=== PATIENT | male | born 1940 | race Caucasian/White ===

== ENCOUNTER 2017-03-19 21:56 | Emergency (ER) | payer OTHER, BC ==
[~2017-03-19 21:56] MED LIST: ALDACTONE25 MG PO; AMLODIPINE BES2.5 MG PO; ASPIRIN ADULT L81 M1 PO; ATORVASTATIN CA40 MG PO; CARVEDILOL25 MG PO; DICYCLOMINE HCL20 MG PO; OMEPRAZOLE40 MG PO
--- NOTE | 2017-03-19 22:25 | ED CLINICAL REPORT ---
Clinical Report - Physicians/Mid Levels [facility] [address] [place] [address] 03/19/2017 21:58 Patient: ABA MOSQUEDA Time Seen: 22:18. Arrived- By private vehicle. Historian- patient. HISTORY OF PRESENT ILLNESS Chief Complaint: DENTAL PAIN. This started yesterday and is still present. Pain described as moderate. The patient has had toothache and jaw pain. (Has irrigated w/ WaterPik-made more painful, swished w/ saltwater, and started amox-took 2 capsules (has bottle of 100 caps of 500mg from [place])). Similar symptoms previously: Recent medical care: The patient was seen recently by a health care provider. ( saw dentist about 6mo ago for same area-advised to have routine f/u for "pus pockets" in gum). REVIEW OF SYSTEMS No fever, joint pain or enlarged lymph nodes. PAST HISTORY See nurses notes. No history of hypertension or diabetes mellitus. Surgeries: Appendectomy. Cholecystectomy. Splenectomy. Medications: Hypertension medications (unknown). Betalol . MetFORMIN HCl Oral. SOCIAL HISTORY Never smoker. Occasional alcohol use. No drug use. ADDITIONAL NOTES The nursing notes have been reviewed. PHYSICAL EXAM Vital Signs: 03/19/2017 22:03 BP: 179/94. HR: 82. RR: 16. O2 saturation: 99%. Temp: 98.9 F. Pain level now: 8/10. Have been reviewed and appear to be correct. Appearance: Alert. No acute distress. Head: Normal external inspection. Eyes: Pupils equal, round and reactive to light. Conjunctivae and eyelids normal. ENT: Moderate dental tenderness of a single tooth with gingival tenderness and swelling (upper right teeth). Ears normal. Nose normal. Pharynx normal. Lips normal. Uvula midline. No muffled or hoarse voice, drooling or trismus. The mucous membranes are not dry. Neck: Trachea midline. No adenopathy. No meningeal signs. CVS: Normal heart rate and rhythm. Respiratory: No respiratory distress. Skin: Normal skin color. No rash. Normal skin turgor. Neuro: Oriented X 3. PROGRESS AND PROCEDURES Course of Care: No cellulitis-but abx certainly warranted given hx splenectomy. Pt has no HUNTER report. Small amt pain rx reasonable. Use ibuprofen first, then T3. Recheck BP w/ PCP. Patient is stable. Patient counseled in person regarding the patient's condition and need for follow-up. Disposition: Discharged. Condition: stable. CLINICAL IMPRESSION Periapical dental abscess. No sinus tract or Hermilo's angina. Elevated blood pressure w/o dx of HTN. INSTRUCTIONS Drink plenty of fluids. Follow a soft diet. (Take your amoxicillin 500mg 3 times a day for a 10 day course See the dentist as soon as possible-let them know you are on antibiotics when you call. Please recheck your BP w/ Dr Molina). Warnings: Further evaluation is necessary. GENERAL WARNINGS: Return or contact your physician immediately if your condition worsens or changes unexpectedly, if not improving as expected, or if other problems arise. Prescription Medications: Tylenol with Codeine Tylenol #3 (30 mg / 300 mg) : take 1-2 tablets orally every 6 hours as needed for pain. Dispense ten (10). No refill. Ibuprofen 800 mg tablets: take 1 tablet orally every 8 hours as needed for pain. Dispense thirty (30). One refill. Follow-up: Follow up with a specialist your dentist even if well. Call for the next available appointment. Understanding of the discharge instructions verbalized by patient. Follow-up with: Cirilo Molina MD, [facility], , [facility], [address] [facility] [address] [place] [address] Follow up even if well. Call for an appointment. Reason for referral: f/u elev BP. (Electronically signed by Rosalva Arce A.R.N.P. 03/19/2017 22:34)
--- NOTE | 2017-03-19 22:25 | ED CLINICAL REPORT ---
Clinical Report - Physicians/Mid Levels [facility] [address] [place] [address] 03/19/2017 21:58 Patient: ABA MOSQUEDA Time Seen: 22:18. Arrived- By private vehicle. Historian- patient. HISTORY OF PRESENT ILLNESS Chief Complaint: DENTAL PAIN. This started yesterday and is still present. Pain described as moderate. The patient has had toothache and jaw pain. (Has irrigated w/ WaterPik-made more painful, swished w/ saltwater, and started amox-took 2 capsules (has bottle of 100 caps of 500mg from [place])). Similar symptoms previously: Recent medical care: The patient was seen recently by a health care provider. ( saw dentist about 6mo ago for same area-advised to have routine f/u for "pus pockets" in gum). REVIEW OF SYSTEMS No fever, joint pain or enlarged lymph nodes. PAST HISTORY See nurses notes. No history of hypertension or diabetes mellitus. Surgeries: Appendectomy. Cholecystectomy. Splenectomy. Medications: Hypertension medications (unknown). Betalol . MetFORMIN HCl Oral. SOCIAL HISTORY Never smoker. Occasional alcohol use. No drug use. ADDITIONAL NOTES The nursing notes have been reviewed. PHYSICAL EXAM Vital Signs: 03/19/2017 22:03 BP: 179/94. HR: 82. RR: 16. O2 saturation: 99%. Temp: 98.9 F. Pain level now: 8/10. Have been reviewed and appear to be correct. Appearance: Alert. No acute distress. Head: Normal external inspection. Eyes: Pupils equal, round and reactive to light. Conjunctivae and eyelids normal. ENT: Moderate dental tenderness of a single tooth with gingival tenderness and swelling (upper right teeth). Ears normal. Nose normal. Pharynx normal. Lips normal. Uvula midline. No muffled or hoarse voice, drooling or trismus. The mucous membranes are not dry. Neck: Trachea midline. No adenopathy. No meningeal signs. CVS: Normal heart rate and rhythm. Respiratory: No respiratory distress. Skin: Normal skin color. No rash. Normal skin turgor. Neuro: Oriented X 3. PROGRESS AND PROCEDURES Course of Care: No cellulitis-but abx certainly warranted given hx splenectomy. Pt has no HUNTER report. Small amt pain rx reasonable. Use ibuprofen first, then T3. Recheck BP w/ PCP. Patient is stable. Patient counseled in person regarding the patient's condition and need for follow-up. Disposition: Discharged. Condition: stable. CLINICAL IMPRESSION Periapical dental abscess. No sinus tract or Hermilo's angina. Elevated blood pressure w/o dx of HTN. INSTRUCTIONS Drink plenty of fluids. Follow a soft diet. (Take your amoxicillin 500mg 3 times a day for a 10 day course See the dentist as soon as possible-let them know you are on antibiotics when you call. Please recheck your BP w/ Dr Molina). Warnings: Further evaluation is necessary. GENERAL WARNINGS: Return or contact your physician immediately if your condition worsens or changes unexpectedly, if not improving as expected, or if other problems arise. Prescription Medications: Tylenol with Codeine Tylenol #3 (30 mg / 300 mg) : take 1-2 tablets orally every 6 hours as needed for pain. Dispense ten (10). No refill. Ibuprofen 800 mg tablets: take 1 tablet orally every 8 hours as needed for pain. Dispense thirty (30). One refill. Follow-up: Follow up with a specialist your dentist even if well. Call for the next available appointment. Understanding of the discharge instructions verbalized by patient. Follow-up with: Cirilo Molina MD, [facility], , [facility], [address] [facility] [address] [place] [address] Follow up even if well. Call for an appointment. Reason for referral: f/u elev BP. (Electronically signed by Rosalva Arce A.R.N.P. 03/19/2017 22:34)
--- NOTE | 2017-03-19 22:25 | ED NURSING NOTES ---
Clinical Report - Nurses [facility] [address] [place] [address] 03/19/2017 21:58 Patient: ABA MOSQUEDA TRIAGE Triage time 22:03. Acuity: LEVEL 4. Chief Complaint: RIGHT UPPER TOOTHACHE. 22:12 03/19/17. Alert. No acute distress. SEPSIS SCREEN: Sepsis Screen. Negative (no infection suspected/documented). REBECA COMA SCORE: Rebeca Coma Scale: 15- eyes open spontaneously (4); best verbal response- oriented x 4 (5); best motor response- obeys commands (6). --22:12 Tia Angulo R.N. 22:03 03/19/17. BP: 179/94. HR: 82. RR: 16. O2 saturation: 99%. Temp: 98.9 F. Pain level now: 06/05. --22:12 Tia Angulo R.N. Weight: 86.6 kg stated. Height/Length: 68 inches Per Patient. BMI: 29. --22:11 Tia Angulo R.N. Medications MetFORMIN HCl Oral. --22:07 Tia Angulo R.N. Betalol . --22:08 Tia Angulo R.N. Hypertension medications (unknown). --22:08 Tia Angulo R.N. Allergies None. --22:30 Tia Angulo R.N. History Historian: patient. Primary physician (Dr Molina). This started yesterday. ( Patient states he goes to a dentist in the area sometimes. Patient reports that he was told to go to the dentist's every six months to observe dry sockets in the RU molar area when he was last at the dentist in September). He has no dental appointment scheduled. 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 (patient states he has treated the pain with some amoxicillin he got from [place], and some oragel.). PAST MEDICAL HX: Immunizations: up-to-date. SOCIAL HX: Never smoker. Occasional alcohol use. No drug use. FALL RISK ASSESSMENT: Fall risk assessment completed. No fall risk identified. NUTRITIONAL RISK ASSESSMENT: The nutritional risk assessment revealed no deficiencies. FUNCTIONAL ASSESSMENT: Functional assessment: no impairments noted. LEARNING NEEDS ASSESSMENT: The learning needs assessment revealed no barriers. SKIN INTEGRITY ASSESSMENT: Skin integrity risk assessment completed. No skin integrity risk identified. --22:12 Tia Angulo R.N. PROBLEMS: Hypertension. Diabetes Mellitus. --22: Tia Angulo R.N. ADDITIONAL SURGERIES: Appendectomy. Cholecystectomy. Splenectomy. --22: Tia Angulo R.N. Interventions ID band on patient. To treatment room. --22:12 Tia Angulo R.N. PHYSICAL ASSESSMENT 22:12 03/19/17. Ambulatory to room. GENERAL / NEURO / PSYCH: Alert. Oriented X 4. Appears in no acute distress. HEENT: Voice within normal limits. Dental tenderness. Dental decay (right upper molar area). Mucous membranes are pink. RESPIRATORY: Respirations not labored. CVS: Capillary refill less than 2 seconds. SKIN: Skin is warm and dry. Normal skin turgor. --22:12 Tia Angulo R.N. NURSING PROGRESS NOTES 22:03/19/17. Two patient identifiers checked. Call light placed in reach. Side rails up x 1. Bed placed in lowest position. Brakes of bed on. --22:13 Tia Angulo R.N. DISPOSITION / DISCHARGE 22:29 03/19/17. No learning barriers present. Discharge instructions provided and reviewed with the patient. Reviewed warnings. Reviewed medication(s). Treatments reviewed. Reviewed referrals. Patient verbalized understanding. Written instructions provided in [place]. The patient was discharged home. He left the Emergency Department ambulatory and via private vehicle. Patient driving. --22: Tia Angulo R.N. 22:03 03/19/17. BP: 179/94. HR: 82. RR: 16. O2 saturation: 99%. Temp: 98.9 F. Pain level now: 06/05. --22:29 Tia Angulo R.N. Locked/Released at 03/19/2017 22:38 by Tia Angulo R.N.
--- NOTE | 2017-03-19 22:25 | ED NURSING NOTES ---
Clinical Report - Nurses [facility] [address] [place] [address] 03/19/2017 21:58 Patient: ABA MOSQUEDA TRIAGE Triage time 22:03. Acuity: LEVEL 4. Chief Complaint: RIGHT UPPER TOOTHACHE. 22:12 03/19/17. Alert. No acute distress. SEPSIS SCREEN: Sepsis Screen. Negative (no infection suspected/documented). REBECA COMA SCORE: Rebeca Coma Scale: 15- eyes open spontaneously (4); best verbal response- oriented x 4 (5); best motor response- obeys commands (6). --22:12 Tia Angulo R.N. 22:03 03/19/17. BP: 179/94. HR: 82. RR: 16. O2 saturation: 99%. Temp: 98.9 F. Pain level now: 06/05. --22:12 Tia Angulo R.N. Weight: 86.6 kg stated. Height/Length: 68 inches Per Patient. BMI: 29. --22:11 Tia Angulo R.N. Medications MetFORMIN HCl Oral. --22:07 Tia Angulo R.N. Betalol . --22:08 Tia Angulo R.N. Hypertension medications (unknown). --22:08 Tia Angulo R.N. Allergies None. --22:30 Tia Angulo R.N. History Historian: patient. Primary physician (Dr Molina). This started yesterday. ( Patient states he goes to a dentist in the area sometimes. Patient reports that he was told to go to the dentist's every six months to observe dry sockets in the RU molar area when he was last at the dentist in September). He has no dental appointment scheduled. 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 (patient states he has treated the pain with some amoxicillin he got from [place], and some oragel.). PAST MEDICAL HX: Immunizations: up-to-date. SOCIAL HX: Never smoker. Occasional alcohol use. No drug use. FALL RISK ASSESSMENT: Fall risk assessment completed. No fall risk identified. NUTRITIONAL RISK ASSESSMENT: The nutritional risk assessment revealed no deficiencies. FUNCTIONAL ASSESSMENT: Functional assessment: no impairments noted. LEARNING NEEDS ASSESSMENT: The learning needs assessment revealed no barriers. SKIN INTEGRITY ASSESSMENT: Skin integrity risk assessment completed. No skin integrity risk identified. --22:12 Tia Angulo R.N. PROBLEMS: Hypertension. Diabetes Mellitus. --22: Tia Angulo R.N. ADDITIONAL SURGERIES: Appendectomy. Cholecystectomy. Splenectomy. --22: Tia Angulo R.N. Interventions ID band on patient. To treatment room. --22:12 Tia Angulo R.N. PHYSICAL ASSESSMENT 22:12 03/19/17. Ambulatory to room. GENERAL / NEURO / PSYCH: Alert. Oriented X 4. Appears in no acute distress. HEENT: Voice within normal limits. Dental tenderness. Dental decay (right upper molar area). Mucous membranes are pink. RESPIRATORY: Respirations not labored. CVS: Capillary refill less than 2 seconds. SKIN: Skin is warm and dry. Normal skin turgor. --22:12 Tia Angulo R.N. NURSING PROGRESS NOTES 22:03/19/17. Two patient identifiers checked. Call light placed in reach. Side rails up x 1. Bed placed in lowest position. Brakes of bed on. --22:13 Tia Angulo R.N. DISPOSITION / DISCHARGE 22:29 03/19/17. No learning barriers present. Discharge instructions provided and reviewed with the patient. Reviewed warnings. Reviewed medication(s). Treatments reviewed. Reviewed referrals. Patient verbalized understanding. Written instructions provided in [place]. The patient was discharged home. He left the Emergency Department ambulatory and via private vehicle. Patient driving. --22: Tia Angulo R.N. 22:03 03/19/17. BP: 179/94. HR: 82. RR: 16. O2 saturation: 99%. Temp: 98.9 F. Pain level now: 06/05. --22:29 Tia Angulo R.N. Locked/Released at 03/19/2017 22:38 by Tia Angulo R.N.
--- NOTE | 2017-03-19 22:38 | ED MAR SUMMARY ---
..... Medication Administration Record [facility] [address], [place] [id number] Patient: ABA MOSQUEDA Visit ID: [id number] 76y, M Weight: 86.6 kg Height/Length: 68 in BMI: 29 ALLERGIES: None
--- NOTE | 2017-03-19 22:38 | ED DISCHARGE INSTRUCTIONS ---
Patient: ABA MOSQUEDA General Instructions [facility] VisitID: [id number] [place] [address] 76y, M Registration Date/Time: 03/19/2017 Periapical dental abscess. No sinus tract or Hermilo's angina. Elevated blood pressure w/o dx of HTN. INSTRUCTIONS Drink plenty of fluids. Follow a soft diet. (Take your amoxicillin 500mg 3 times a day for a 10 day course See the dentist as soon as possible-let them know you are on antibiotics when you call. Please recheck your BP w/ Dr Molina). Warnings: Further evaluation is necessary. GENERAL WARNINGS: Return or contact your physician immediately if your condition worsens or changes unexpectedly, if not improving as expected, or if other problems arise. Prescription Medications: Tylenol with Codeine Tylenol #3 (30 mg / 300 mg) : take 1-2 tablets orally every 6 hours as needed for pain. Dispense ten (10). No refill. Ibuprofen 800 mg tablets: take 1 tablet orally every 8 hours as needed for pain. Dispense thirty (30). One refill. Follow-up: Follow up with a specialist your dentist even if well. Call for the next available appointment. Understanding of the discharge instructions verbalized by patient. Follow-up with: Cirilo Molina MD, [facility], , [facility], [address] [address] Follow up even if well. Call for an appointment. Reason for referral: f/u elev BP. ADDITIONAL INFORMATION Dental Abscess A dental abscess is an infection of the tooth socket. It often starts with a crack or cavity in the tooth. A pocket of pus forms between the tooth and the bone. The infection causes pain and swelling of the gum, cheek or jaw. The pain is often made worse by drinking hot or cold fluids, or biting on hard foods. Pain may be felt in the facial sinus or in the ear. A severe infection can interfere with swallowing and breathing. In the emergency department or clinic, you will be started on an antibiotic. However, final treatment requires drainage of the pus. This can be done by removing the tooth or performing a root canal. A root canal is done by an oral surgeon and involves drilling an opening in the tooth to drain the pus. After the infection has healed, a crown is placed over the tooth. Home care The following guidelines will help you care for your abscess at home: Avoid hot and cold foods and liquids since your tooth may be sensitive to temperature changes. If your tooth is chipped or cracked, or if there is a large open cavity, applyoil of cloves(available xujc-twg-asubvar in drug stores) directly to the tooth to reduce pain. Some pharmacies carry an mnii-tkh-ifgddmi "toothache kit". This contains oil of cloves and a paste, which can be applied over the exposed tooth to decrease sensitivity. Apply an ice pack (ice cubes in a plastic bag, wrapped in a towel) over the injured area for 20 minutes every 12 hours the first day for pain relief. Continue this 34 times a day until the pain and swelling goes away. You may use acetaminophen or ibuprofen to control pain, unless another medicine was prescribed. If you have chronic liver or kidney disease or ever had a stomach ulcer or GI bleeding, talk with your doctor before using these medicines. An antibiotic will be prescribed. Take it as directed until completed, even if you are feeling better sooner. Follow-up care Follow up as directed with a dentist or oral surgeon. Even though your pain may improve with the treatment given today, only a dentist or oral surgeon can provide full treatment for this problem. When to seek medical care Get prompt medical attention or contact your doctor if any of the following occur: Your face or eyelid becomes swollen or red Pain worsens or spreads to the neck Fever over 100.4F (38.0C) Unusual drowsiness; headache or stiff neck; weakness, or fainting Pus drains from the gum or tooth Difficulty talking, swallowing or breathing Unable to open your mouth wide You have been given the following additional information: Tooth Abscess (Electronically signed by Rosalva Arce A.R.N.P. 03/19/2017 22:34)
--- NOTE | 2017-03-19 22:38 | ED MED RECONCILIATION SUMMARY ---
Patient: ABA MOSQUEDA Medication Reconciliation Report [facility] VisitID: [id number] [address] [place] [address] 76y, M Registration Date/Time: 03/19/2017 Weight: 86.6 kg Height/Length: 68 in. BMI: 29.0 ALLERGIES: None The patient's Home Medications are listed below: THE FOLLOWING MEDICATIONS NEED TO BE RECONCILED: Betalol Hypertension medications (unknown) MetFORMIN HCl Oral The source(s) of the original Home Medication information: Not obtained. The following Medications were given to the patient in the Emergency Department: None. The following Medications were prescribed to the patient: Tylenol with Codeine Tylenol #3 (30 mg / 300 mg) : take 1-2 tablets orally every 6 hours as needed for pain. Dispense ten (10). No refill. -- Rosalva Arce A.R.N.P. Ibuprofen 800 mg tablets: take 1 tablet orally every 8 hours as needed for pain. Dispense thirty (30). One refill. -- Rosalva Arce A.R.N.P.
--- NOTE | 2017-03-19 22:38 | ED DISCHARGE INSTRUCTIONS ---
Patient: ABA MOSQUEDA General Instructions [facility] VisitID: [id number] [place] [address] 76y, M Registration Date/Time: 03/19/2017 Periapical dental abscess. No sinus tract or Hermilo's angina. Elevated blood pressure w/o dx of HTN. INSTRUCTIONS Drink plenty of fluids. Follow a soft diet. (Take your amoxicillin 500mg 3 times a day for a 10 day course See the dentist as soon as possible-let them know you are on antibiotics when you call. Please recheck your BP w/ Dr Molina). Warnings: Further evaluation is necessary. GENERAL WARNINGS: Return or contact your physician immediately if your condition worsens or changes unexpectedly, if not improving as expected, or if other problems arise. Prescription Medications: Tylenol with Codeine Tylenol #3 (30 mg / 300 mg) : take 1-2 tablets orally every 6 hours as needed for pain. Dispense ten (10). No refill. Ibuprofen 800 mg tablets: take 1 tablet orally every 8 hours as needed for pain. Dispense thirty (30). One refill. Follow-up: Follow up with a specialist your dentist even if well. Call for the next available appointment. Understanding of the discharge instructions verbalized by patient. Follow-up with: Cirilo Molina MD, [facility], , [facility], [address] [address] Follow up even if well. Call for an appointment. Reason for referral: f/u elev BP. ADDITIONAL INFORMATION Dental Abscess A dental abscess is an infection of the tooth socket. It often starts with a crack or cavity in the tooth. A pocket of pus forms between the tooth and the bone. The infection causes pain and swelling of the gum, cheek or jaw. The pain is often made worse by drinking hot or cold fluids, or biting on hard foods. Pain may be felt in the facial sinus or in the ear. A severe infection can interfere with swallowing and breathing. In the emergency department or clinic, you will be started on an antibiotic. However, final treatment requires drainage of the pus. This can be done by removing the tooth or performing a root canal. A root canal is done by an oral surgeon and involves drilling an opening in the tooth to drain the pus. After the infection has healed, a crown is placed over the tooth. Home care The following guidelines will help you care for your abscess at home: Avoid hot and cold foods and liquids since your tooth may be sensitive to temperature changes. If your tooth is chipped or cracked, or if there is a large open cavity, applyoil of cloves(available lczr-xeu-xxoqtzn in drug stores) directly to the tooth to reduce pain. Some pharmacies carry an cspd-jtq-axthjno "toothache kit". This contains oil of cloves and a paste, which can be applied over the exposed tooth to decrease sensitivity. Apply an ice pack (ice cubes in a plastic bag, wrapped in a towel) over the injured area for 20 minutes every 12 hours the first day for pain relief. Continue this 34 times a day until the pain and swelling goes away. You may use acetaminophen or ibuprofen to control pain, unless another medicine was prescribed. If you have chronic liver or kidney disease or ever had a stomach ulcer or GI bleeding, talk with your doctor before using these medicines. An antibiotic will be prescribed. Take it as directed until completed, even if you are feeling better sooner. Follow-up care Follow up as directed with a dentist or oral surgeon. Even though your pain may improve with the treatment given today, only a dentist or oral surgeon can provide full treatment for this problem. When to seek medical care Get prompt medical attention or contact your doctor if any of the following occur: Your face or eyelid becomes swollen or red Pain worsens or spreads to the neck Fever over 100.4F (38.0C) Unusual drowsiness; headache or stiff neck; weakness, or fainting Pus drains from the gum or tooth Difficulty talking, swallowing or breathing Unable to open your mouth wide You have been given the following additional information: Tooth Abscess (Electronically signed by Rosalva Arce A.R.N.P. 03/19/2017 22:34)
--- NOTE | 2017-03-19 22:38 | ED MAR SUMMARY ---
..... Medication Administration Record [facility] [address], [place] [id number] Patient: ABA MOSQUEDA Visit ID: [id number] 76y, M Weight: 86.6 kg Height/Length: 68 in BMI: 29 ALLERGIES: None
--- NOTE | 2017-03-19 22:38 | ED MED RECONCILIATION SUMMARY ---
Patient: ABA MOSQUEDA Medication Reconciliation Report [facility] VisitID: [id number] [address] [place] [address] 76y, M Registration Date/Time: 03/19/2017 Weight: 86.6 kg Height/Length: 68 in. BMI: 29.0 ALLERGIES: None The patient's Home Medications are listed below: THE FOLLOWING MEDICATIONS NEED TO BE RECONCILED: Betalol Hypertension medications (unknown) MetFORMIN HCl Oral The source(s) of the original Home Medication information: Not obtained. The following Medications were given to the patient in the Emergency Department: None. The following Medications were prescribed to the patient: Tylenol with Codeine Tylenol #3 (30 mg / 300 mg) : take 1-2 tablets orally every 6 hours as needed for pain. Dispense ten (10). No refill. -- Rosalva Arce A.R.N.P. Ibuprofen 800 mg tablets: take 1 tablet orally every 8 hours as needed for pain. Dispense thirty (30). One refill. -- Rosalva Arce A.R.N.P.
== END 2017-03-19 22:29 | disposition home or self-care (01) ==
LOC: ED SRH 21:56
DX: K04.7 Periapical abscess without sinus (principal); I10 Essential (primary) hypertension; E11.9 Type 2 diabetes mellitus without complications; Z79.84 Long term (current) use of oral hypoglycemic drugs; Z79.899 Other long term (current) drug therapy